=== PATIENT | male | born 1950 | race Caucasian/White ===

== ENCOUNTER 2019-10-24 11:09 | Outpatient (CLI) | payer BC ==
--- NOTE | 2019-10-24 12:36 | MRI ---
MR the lumbar spine without contrast INDICATION: Chronic lumbar radiculopathy COMPARISON: None. TECHNIQUE: Multiplanar multisequence MR images were obtained of lumbar spine without IV contrast. FINDINGS: Bone marrow: There is an acute subendplate insufficiency fracture involving the right aspect of the L 4 vertebra, best seen on image 6 of series 4 and image 6 of series 5. There is some mild Modic endplate degenerative changes seen involving the L4-5 level. Distal spinal cord and conus: Normal. The conus seen to terminate at L1. Visualized retroperitoneum and paraspinal soft tissues: There is a large inferior left renal cyst trevor suring 8.1 cm. There is suspected proteinaceous cyst involving the posterior right renal inferior pole measuring 1.1 cm. Vertebral levels: L5-S1: There is an asymmetric to the left broad-based disc bulge with facet hypertrophy inducing josie re left lateral recess narrowing with probable impingement of the traversing left S1 nerve root. There is mild central canal narrowing at this level. The facet hypertrophy and broad-based bulge sujey cing moderate to severe left and mild right neural foraminal narrowing.. L4-5: There is a broad-based disc osteophyte complex with facet hypertrophy and ligamentum flavum hyp ertrophy inducing severe central canal narrowing with moderate right and severe left neural foraminal narrowing. L3-4: There is a broad-based bulge with facet hypertrophy inducing mild neural foraminal narrowing L2-3: There is a broad-based bulge with facet hypertrophy inducing mild bilateral neural foraminal na rrowing, left greater than right. L1-L2: There is a mild broad-based bulge but no appreciable central canal or neural foraminal narrowi ng T12-L1: There is a mild broad-based bulge but no appreciable central canal or neural foraminal narrow ing. IMPRESSION: 1. Asymmetric to the left broad-based disc bulge at L5-S1 with facet hypertrophy induces severe left lateral recess narrowing with probable impingement of the traversing left S1 nerve root. There is mild central canal narrowing at L5-S1 with cysts moderate to severe left and mild right neural forami nal narrowing. 2. Severe central canal narrowing at L4-5 with moderate right and severe left neural foraminal narrow ing. 3. Small nondisplaced subendplate insufficiency fracture involving the right aspect of the L4 vertebr a. 4. Bilateral renal cysts. The small lesion on the right appears to be a proteinaceous cyst. Renal ult rasound is recommended for confirmation.
== END 2019-10-24 11:10 | disposition home or self-care (01) ==
LOC: SCSMRI 11:09 → TBSIIMAG 11:10
PROVIDERS: ATTEND Family Medicine
DX: M51.17 Intervertebral disc disorders with radiculopathy, lumbosacral region (principal); M48.07 Spinal stenosis, lumbosacral region; M48.061 Spinal stenosis, lumbar region without neurogenic claudication; M84.48XA Pathological fracture, other site, initial encounter for fracture; N28.1 Cyst of kidney, acquired
CPT/HCPCS: 72148

== ENCOUNTER 2019-11-05 09:09 | Outpatient (CLI) | payer BC ==
--- NOTE | 2019-11-05 09:58 | ULT ---
Renal sonogram HISTORY: Renal mass. COMPARISON: MRI 10/24/2019. FINDINGS: Right kidney is 9.6 cm length. No hydronephrosis. A 0.6 cm cyst is noted at the inferior po le. Left kidney measures up to 10.7 cm without hydronephrosis. Exophytic 0.9 cm cyst projects medially fr om the midportion the kidney. At the inferior pole is a predominantly exophytic well-circumscribed anechoic mass with good posterior acoustic enhancement. It measures up to 7.8 x 7.4 cm greatest diame ters. No solid components evident. Urinary bladder has a normal appearance. Incompletely distended. Prostate measures up to 6.2 cm and h as a lobular margin and heterogeneous echotexture. IMPRESSION : Large left renal cyst. Additional smaller renal cysts. No solid mass or other aggressive process evid ent. Enlarged prostate gland.
== END 2019-11-05 09:10 | disposition home or self-care (01) ==
LOC: SCSULT 09:09
PROVIDERS: ATTEND Family Medicine
DX: N28.1 Cyst of kidney, acquired (principal); N40.0 Benign prostatic hyperplasia without lower urinary tract symptoms
CPT/HCPCS: 76770

== ENCOUNTER 2022-01-05 14:27 | Outpatient (CLI) | payer BC | END 2022-01-05 14:28 | disposition home or self-care (01) | LOC: ULT 14:27 | PROVIDERS: ATTEND Family Medicine | DX: I10 Essential (primary) hypertension (principal); I34.0 Nonrheumatic mitral (valve) insufficiency; Z82.49 Family history of ischemic heart disease and other diseases of the circulatory system | CPT/HCPCS: 93306 ==

== ENCOUNTER 2023-03-13 17:00 | Outpatient (CLI) | payer BC | END 2023-03-13 17:01 | disposition home or self-care (01) | LOC: SLEEPLAB 17:00 | PROVIDERS: ATTEND Family Medicine Sports Medicine | DX: G47.33 Obstructive sleep apnea (adult) (pediatric) (principal); R53.83 Other fatigue; F41.9 Anxiety disorder, unspecified; K21.9 Gastro-esophageal reflux disease without esophagitis; I10 Essential (primary) hypertension | CPT/HCPCS: 95800 ==

== ENCOUNTER 2023-04-13 17:00 | Outpatient (CLI) | payer BC | END 2023-04-13 17:01 | disposition home or self-care (01) | LOC: SLEEPLAB 17:00 | PROVIDERS: ATTEND Family Medicine Sports Medicine | DX: G47.33 Obstructive sleep apnea (adult) (pediatric) (principal); G47.61 Periodic limb movement disorder; K21.9 Gastro-esophageal reflux disease without esophagitis; I10 Essential (primary) hypertension; F41.9 Anxiety disorder, unspecified; R53.83 Other fatigue; R06.83 Snoring | CPT/HCPCS: 95810 ==